=== PATIENT | male | born 1970 | race Caucasian/White ===

== ENCOUNTER → 2021-07-21 13:26 | Outpatient (CLI) | payer OTHER, SELFPAY ==
--- NOTE | 2021-07-21 13:29 | DI.RAD.S_ITS ---
PROCEDURE: XR FINGER LT MIN 2V INDICATIONS: L pinky injury, rotational deformity TECHNIQUE: AP hand, 2 views of the 5th finger(s) acquired. COMPARISON: None. FINDINGS: Bones: Dislocation is seen of the proximal phalanx of the 5th finger, with associated avulsion fracture fragments with the largest fragment measuring 2 mm. No additional fractures are detected. No suspicious lytic or blastic lesions are seen. Soft tissues: Associated soft tissue swelling is seen. IMPRESSION: Dislocation of the proximal phalanx of the 5th finger, with associated avulsion fracture fragments. Dictated by: Pedro Luis Cornejo M.D. on 07/21/2021 at 12:49 Approved by: Pedro Luis Cornejo M.D. on 07/21/2021 at 12:49
== END ==
PROVIDERS: Referring Provider Physician Assistant; Visit Provider Physician Assistant
DX: S63.287A Dislocation of proximal interphalangeal joint of left little finger, initial encounter (principal); X58.XXXA Exposure to other specified factors, initial encounter
CPT/HCPCS: 73140